=== PATIENT | female | born 1945 ===

== ENCOUNTER 2018-07-21 07:47 | Outpatient (CLI) | payer OTHER ==
[~2018-07-21] VITALS: Ht 167.6 cm; Wt 71.7 kg
[2018-07-21] MEDS ORDERED: LIPO-FLAVONOID1 EACH PO (09:47)
[2018-07-21] MEDS ORDERED: MELATONIN10 M2 PO (09:47)
== END 2018-07-21 08:05 | disposition home or self-care (01) ==
LOC: OFIC 805 07:47
DX: H93.13 Tinnitus, bilateral (principal)